=== PATIENT | female | born 1970 | race Caucasian/White ===

== ENCOUNTER 2017-02-27 12:26 | Emergency (ER) | payer OTHER ==
[~2017-02-27] VITALS: Ht 152.4 cm; Wt 66.9 kg
[2017-02-27 12:54] VITALS: BP 128/76; PULSE 66; RESP 16; TEMP 97.6; O2SAT 99
--- NOTE | 2017-02-27 13:26 | PD ---
HPI Chief Complaint: Injury Time Seen by Provider: 13:24 Travel History International Travel<30 days: No Contact w/Intl Traveler<30days: No Traveled to known affect area: No History of Present Illness HPI This patient complains of right thumb injury. Duration 1 hour. Severity is moderate. It's worse with movement. 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 PFSH Past Medical History ?: Not LMP: 2 WEEKS AGO Social History Alcohol Use: No Tobacco Use: No Substance Use: No Allergies-Medications (Allergen,Severity, Reaction): Coded Allergies: cefazolin (Verified Allergy, Mild, Hives, 02/27/17) Reported Meds & Prescriptions Reported Meds & Active Scripts Active No Active Prescriptions or Reported Medications Review of Systems General / Constitutional: No: Fever HENT: No: Headaches Cardiovascular: No: Chest Pain or Discomfort Physical Exam Narrative Psych: Normal mood and affect. Normal insight and judgment. SKIN: Focused skin assessment reveals no rash or ulcers. Skin is warm and dry. Palpation shows no induration or nodules. Right thumb: There is tenderness but no bruising or deformity or open wound. No swelling. Data Data Last Documented VS Vital Signs Date Time Temp Pulse Resp B/P (MAP) Pulse Ox O2 Delivery O2 Flow Rate FiO2 02/27/17 12:54 97.6 66 16 128/76 (93) 99 Orders Orders Finger ([id number]) (02/27/17 ) Splint Or Brace Apply/Monitor (02/27/17 14:38) Ed Discharge Order (02/27/17 14:39) MDM Medical Decision Making Medical Screen Exam Complete: Yes Emergency Medical Condition: Yes Medical Record Reviewed: Yes Differential Diagnosis Fracture, dislocation, soft tissue strain Narrative Course I have reviewed the patient's electronic medical record. I reviewed her right thumb x-rays which are normal Presentation suggests soft tissue injury to the right thumb. She is right handed and in gymnastics of her right thumb his vital. Therefore I took a conservative approach and placed her in thumb spica splint to stabilize and protect. She'll follow up with hand physician. She will ice and elevate today. Diagnosis Primary Impression: Injury of right thumb Qualified Codes: S69.91XA - Unspecified injury of right wrist, hand and finger (s), initial encounter Additional Instructions: The patient was advised to follow up with hand physician and return if they worsen. Ice and elevate right thumb Wear splint Med/Other Pt SpecificInfo: Other Scripts No Active Prescriptions or Reported Meds Disposition: 01 DISCHARGE HOME Condition: Stable Kiko Mensah MD Feb 27, 2017 13:26
--- NOTE | 2017-02-27 14:17 | RADRPT ---
EXAM DATE/TIME: 02/27/2017 13:36 [facility] COMPARISON: No previous studies available for comparison. INDICATIONS : Patient injured right 1st digit spotting gymnast. MEDICAL HISTORY : None. SURGICAL HISTORY : None. ENCOUNTER: Initial ACUITY: 1 day PAIN SCORE: 4/10 LOCATION: Right thumb FINDINGS: Examination of the first digit of the right hand demonstrates no evidence of fracture or dislocation. No radiopaque foreign bodies are seen. The soft tissues are intact. CONCLUSION: Unremarkable examination of the right first finger. Braden Diaz Jr., MD on February 27, 2017 at 14:15 Board Certified Radiologist. This report was verified electronically.
== END 2017-02-27 16:01 | disposition home or self-care (01) ==
LOC: PHEFT 12:26
DX: S69.91XA Unspecified injury of right wrist, hand and finger(s), initial encounter (principal); X50.0XXA Overexertion from strenuous movement or load, initial encounter; Y93.43 Activity, gymnastics
CPT/HCPCS: 73140; 99283; L3808